=== PATIENT | male | born 1980 | race Caucasian/White ===

== ENCOUNTER 2017-04-24 17:28 | Emergency (ER) | payer SELFPAY ==
[~2017-04-24] VITALS: Ht 185.4 cm; Wt 81.8 kg
[2017-04-24 19:10] VITALS: BP 118/71
== END 2017-04-24 19:12 | disposition home or self-care (01) ==
LOC: ED 17:28
DX: A08.4 Viral intestinal infection, unspecified (principal)
CPT/HCPCS: J2405; J2550; J7030

== ENCOUNTER 2017-04-25 18:36 | Emergency (ER) | payer SELFPAY ==
[~2017-04-25] VITALS: Ht 185.4 cm; Wt 81.8 kg
[2017-04-25 22:01] VITALS: BP 141/95
== END 2017-04-25 22:01 | disposition short-term general hospital (02) ==
LOC: ED 18:36
DX: K56.60 Unspecified intestinal obstruction (principal)
CPT/HCPCS: C9113; J2405; J3010; J7120; Q9967